=== PATIENT | male | born 1960 | race Caucasian/White ===

== ENCOUNTER → 2016-07-28 | Outpatient (CLI) | payer OTHER ==
[~2016-07-28] MED LIST: ALBU18002 INH; AMT50 PO; CLIN300C10; CLON1TAB3 PO; CYCL10TA6 PO; DICL1GEL28; FLUT0.15 NAE; GADAVIST IV PRN; LINA1CAP PO; LORA5TAB3 PO; OMEP20CA59 PO; OXYC-106 PO; OXYM0.0592; PRLSR20 PO; SPRIN/30 INH; VENL1CAP92 PO
--- NOTE | 2016-07-28 13:55 | DIAGNOSTIC IMAGING REPORT ---
MRI OF THE THORACIC SPINE WITH AND WITHOUT CONTRAST CLINICAL HISTORY: INTRATHECAL PUMP ASSESS FOR GRANULOMA COMPARISON STUDY: MRI of the thoracic spine December 20, 2008 and lumbar spine radiographs August 25, 2010. TECHNIQUE: Utilizing a 1.5 Alicia magnet, multiplanar, multi echo imaging of the thoracic spine was performed pre and postcontrast ministration. Injection of 10 cc of Gadavist IV was uneventful. FINDINGS: Evaluation is difficult given marked kyphosis of the thoracic spine. There is an old mild T11 compression fracture. This is unchanged. There is slight loss of height of the T7 vertebral body as well. No acute compression fracture is identified. Discogenic changes with Schmorl's nodes are noted at multiple levels. Thoracic cord signal and caliber are normal. There is no intracanalicular mass or fluid collection. The intrathecal catheter is noted. The tip is not well demonstrated on MRI but there is no enhancement within the canal to suggest a catheter tip granuloma. There is no abnormal enhancement within the thoracic canal. Paravertebral soft tissues are unremarkable. The central canal and neural foramen are patent. There are no disc herniations. IMPRESSION: 1. Intrathecal catheter identified. No evidence of catheter tip granuloma 2. Marked kyphosis of the thoracic spine which makes evaluation difficult. 3. Old mild compression deformities of T7 and T11. No acute compression fracture. 4. Multilevel discogenic changes with Schmorl's nodes. Patent central canal and neural foramen. Electronically signed by: Jorgito Hubbard M.D. 07/28/2016 1:54 PM Dictated Date/Time: 07/28/2016 1:43 PM
--- NOTE | 2016-07-28 14:13 | DIAGNOSTIC IMAGING REPORT ---
MRI OF THE LUMBAR SPINE WITH AND WITHOUT CONTRAST CLINICAL HISTORY: INTRATHECAL PUMP ASSESS FOR GRANULOMA COMPARISON STUDY: Thoracolumbar spine radiograph August 25, 2010 TECHNIQUE: Utilizing a 1.5 Alicia magnet and dedicated coil, multiplanar, multiecho imaging of the lumbar spine was performed before and after uneventful IV administration of 10 mL of Gadavist. FINDINGS: Alignment of lumbar spine is anatomic. There is an old mild T11 compression fracture. The conus terminates at the L1 level. An intrathecal catheter is noted which enters the canal at the T12-L1 level. The catheter tip is difficult to visualize but there is no abnormal enhancement to suggest a catheter tip granuloma on this exam or the MRI of the thoracic spine which was performed today. Paravertebral soft tissues are unremarkable. Mild multilevel degenerative changes are present. L1-2: The central canal and neural foramen are patent. L2-3: The central canal and neural foramen are patent. L3-4: The central canal and neural foramen are patent. L4-5: The central canal and neural foramen are patent. L5-S1: The central canal and neural foramen are patent. IMPRESSION: 1. Intrathecal catheter identified. This likely enters the canal at the T12-L1 level. The tip is difficult to visualize by MRI but there is no evidence for a catheter tip granuloma on this exam or the MRI of the thoracic spine which was performed concurrently. 2. Old T11 compression fracture. 3. Mild multilevel degenerative changes within the lumbar spine. Patent central canal and neural foramen. Electronically signed by: Jorgito Hubbard M.D. 07/28/2016 2:11 PM Dictated Date/Time: 07/28/2016 2:05 PM
== END | disposition home or self-care (01) ==
LOC: C.MRIBC 11:26
PROVIDERS: ATTEND Anesthesiology
DX: M40.204 Unspecified kyphosis, thoracic region (principal); M51.44 Schmorl's nodes, thoracic region; Z97.8 Presence of other specified devices

== ENCOUNTER → 2016-11-12 | Outpatient (CLI) | payer OTHER ==
[~2016-11-12] VITALS: Ht 170.2 cm; Wt 112.5 kg
[~2016-11-12] MED LIST changes: -GADAVIST IV PRN; +LACTATED RINGER'S 1000ML 1,000 ML IV SCH; +VANCOMYCIN 1GM/270ML NSS IV SCH
[2016-11-12 11:19] VITALS: Ht 170.2 cm; Wt 112.5 kg
--- NOTE | 2016-11-12 12:14 | PAT Medication Instructions ---
Service Date November 12, 2016. Current Home Medication List Albuterol Sulfate (Proair Respiclick), 2 PUFF INH Q4 PRN for SOB/Wheezing Amitriptyline Hcl (Elavil), 50 MG PO HS Clonazepam (Klonopin), 1 MG PO TID Cyclobenzaprine Hcl (Flexeril), 10 MG PO BID Diclofenac Sod (Voltaren 1% Top Gel), TID PRN for PRN Fluticasone Propionate (Nasal) (Flonase Allergy Relief), 1 SPRAY GIGI QAM Omeprazole (Prilosec), 20 MG PO HS Oxycodone/Acetaminophen 10MG/325MG (Percocet 10MG/325MG), 1 TAB PO TID Oxymetazoline Hcl (Nasal Eldena), PRN Tiotropium White (Spiriva Handihaler), 1 CAP INH DAILY Medication Instructions For Your Scheduled Surgery - Hold the following medications 24 hours prior to surgery: Diclofenac Sod (Voltaren 1% Top Gel), TID PRN for PRN - Hold the following medications the morning of surgery: Cyclobenzaprine Hcl (Flexeril), 10 MG PO BID - Take the following medications the morning of surgery with a sip of water: Tiotropium White (Spiriva Handihaler), 1 CAP INH DAILY Oxymetazoline Hcl (Nasal Eldena), PRN Oxycodone/Acetaminophen 10MG/325MG (Percocet 10MG/325MG), 1 TAB PO TID (can take up to four hours prior to surgery if needed) Fluticasone Propionate (Nasal) (Flonase Allergy Relief), 1 SPRAY GIGI QAM Clonazepam (Klonopin), 1 MG PO TID Albuterol Sulfate (Proair Respiclick), 2 PUFF INH Q4 PRN for SOB/Wheezing ( bring with you to hospital on day of surgery) - Take the following medications as scheduled the night before surgery: Oxymetazoline Hcl (Nasal Eldena), PRN Oxycodone/Acetaminophen 10MG/325MG (Percocet 10MG/325MG), 1 TAB PO TID Omeprazole (Prilosec), 20 MG PO HS Cyclobenzaprine Hcl (Flexeril), 10 MG PO BID Clonazepam (Klonopin), 1 MG PO TID Albuterol Sulfate (Proair Respiclick), 2 PUFF INH Q4 PRN for SOB/Wheezing Amitriptyline Hcl (Elavil), 50 MG PO HS If you have any questions please call us at [phone] or [phone] ( [facility]) or [phone]
[2016-11-12 12:39] LABS: URINE APPEARANCE CLEAR (CLEAR); URINE BILIRUBIN NEG (NEG); URINE COLOR YELLOW; URINE NITRITE NEG (NEG); URINE PH 5.5 (4.5-7.5); URINE SPECIFIC GRAVITY 1.009 (1.000-1.030); UROBILINOGEN NEG (NEG)
[2016-11-12 12:51] LABS: MANUAL MICROSCOPIC REQUIRED? NO; REVIEW REQ? NO
[2016-11-12 13:04] LABS: BASO % 0.3 %; BASO ABS # 0.03 K/uL (0-0.2); COMPLETE YES; EOS % 0.8 %; HEMATOCRIT 42.1 % (42-52); IG% 0.3 %; LYMPH % 22.4 %; LYMPH ABS # 2.48 K/uL (1.2-3.4); MEAN CORPUSCULAR HEMOGLOBIN 29.1 pg (25-34); MEAN CORPUSCULAR HGB CONC 32.3 g/dl (32-36); MONO % 6.9 %; NEUT % 69.3 %; PLATELET COUNT 326 K/uL (130-400); RED BLOOD COUNT 4.68 M/uL (4.7-6.1); WHITE BLOOD COUNT 11.06 K/uL (4.8-10.8)
[2016-11-12 16:37] LABS: BUN/CREATININE RATIO 11.7 (10-20); CALCIUM 9.5 mg/dl (8.5-10.1); CREATININE 0.81 mg/dl (0.60-1.40); POTASSIUM 4.8 mmol/L (3.5-5.1)
--- NOTE | 2016-12-20 09:32 | History and Physical ---
History & Physical Date of Service Dec 20, 2016. History & Physical Plan of care discussed with Dr. Santana CHIEF COMPLAINT: Chronic intractable cervicalgia and thoracic pain HISTORY OF PRESENT ILLNESS: Mr. Rincon is a 56 year old white male that is well known to the [facility] with a history of chronic intractable pain secondary to cervical post-laminectomy syndrome and chronic thoracic pain secondary to severe thoracic kyphoscoliosis. Patient did have an intrathecal pump and catheter delivery system implanted which has been adequately controlling his pain with the current dosing of Morphine, Bupivacaine, and Baclofen. Patient is able to perform more of his daily activities. Pain is rated 3/10 at its best and 10/10 at its worst. He denies any constitutional complaints, neurological symptoms, leg weakness. PAST MEDICAL HISTORY: 1. Asthma 2. Obstructive sleep apnea 3. Thoracic kyphoscoliosis 4. Chipped teeth 5. Anxiety disorder 6. Depressive disorder 7. Gastroesophageal reflux disorder 8. Cervical post-laminectomy syndrome 9. Severe thoracic kyphoscoliosis PAST SURGICAL HISTORY: 1. Left arm surgery 2. Implantation of intrathecal pump and catheter delivery system 3. Cervical surgery 4. Herniorrhaphy SOCIAL HISTORY: Patient is disabled. He has his grown child and several grandchildren living with him. He does smoke 2 ppd x 40 years. No alcohol or illicit substance abuse. ALLERGIES: PENICILLIN MEDICATIONS: 1. Albuterol 2 puffs inhalation every 4 hours as needed 2. Amitriptyline 50 mg at bedtime 3. Klonopin 1 mg 3 times daily 4. Flexeril 10 mg twice daily as needed 5. Voltaren 1% gel apply to affected area 3-4 times daily as needed 6. Flonase 1 spray in each nostril daily 7. Omeprazole 20 mg daily 8. Percocet 10/325 one tablet 3 times daily 9. Spiriva inhaler 1 inhalation daily REVIEW OF SYSTEMS: Denies any constitutional, cardiac, pulmonary, neurological, GI, , extremity, endocrine, neuro, ENT, dermatological, or musculoskeletal complaints other than stated in HPI PHYSICAL EXAMINATION: VITAL SIGNS: Per admission GENERAL: Mr. Rincon is a 56 year old white male that is obese and physically deconditioned. He does not appear in any acute distress. Speech and cognition is intact. Mood and affect is appropriate. HEAD: Normocephalic; atraumatic. EYES: Pupils are round, equal, and reactive to light; EOM intact. ENT: No external ear discharge or lesions. No rhinorrhea or epistaxis. No mucosal lesions. NECK: Neck is flexed forward. There is no flexion, extension, or ear to shoulder rotation. There is approximately 30 degrees of lateral rotation. PULM: Clear to auscultation. No wheezes, rales, or rhonchi. CHEST: Regular chest respiration and excursion. ABDOMEN: Active bowel sounds throughout; non-tender to palpation. Intrathecal pump is located along the left lower quadrant of the abdomen. EXTREMITIES: Moves all extremities appropriately. BACK: There is severe thoracic kyphoscoliosis. Minimal ROM in all planes. There is mild spasm of the mid thoracic paravertebral musculature. NEURO: CN II-XII grossly intact with no focal deficits noted. AAO x 3. SKIN: No lesions, erythema, or rashes noted. ASSESSMENT: Chronic intractable pain secondary to cervical post-laminectomy syndrome and chronic thoracic back pain secondary to severe kyphoscoliosis. TREATMENT: Patient has been reporting significant pain relief of cervicalgia and thoracic back pain since the implantation of the intrathecal pump and catheter delivery system containing Morphine, Bupivacaine, and Baclofen. Patient is able to perform more of his daily activities. He is very pleased with the current intrathecal dosage. As the pump MARIA LUZ is at 6 months, it is recommended that the pump be replaced. Procedure was explained to the patient. Risk and benefits were reviewed with the patient. Patient would like to proceed with the procedure. He is scheduled for a pump replacement on 12/28/16.
--- NOTE | 2017-03-09 09:43 | CODING QUERY MEDICAL NECESSITY ---
CQSUPPORTING DIAGNOSIS NEEDED A supporting diagnosis is required for the test/procedure performed on this patient in order for us to be reimbursed by the patient's insurance. Please provide a supporting diagnosis for the following test/procedure listed below next to the test name along with your signature. *If there is no additional diagnosis for this patient that would support the following test/procedure please document that below next to the test/procedure. Test(s)/Procedure(s) that require a supporting diagnosis: NIMA 11/01/16 URINE CULTURE Provider Signature: Date: Thank you Magda García [employer] Once completed, please kindly fax back to [phone] For questions please call [phone]
== END | disposition home or self-care (01) ==
LOC: C.LAB 08:00 → EDSTATUS 12-28 13:00
PROVIDERS: ATTEND Anesthesiology
DX: Z01.810 Encounter for preprocedural cardiovascular examination (principal); Z01.812 Encounter for preprocedural laboratory examination; M96.1 Postlaminectomy syndrome, not elsewhere classified; G47.33 Obstructive sleep apnea (adult) (pediatric); K21.9 Gastro-esophageal reflux disease without esophagitis; F17.210 Nicotine dependence, cigarettes, uncomplicated